=== PATIENT | female | born 1980 | race African-American/Black ===

== ENCOUNTER 2019-03-24 23:10 | Emergency (ER) | payer MEDICAID ==
[~2019-03-24] VITALS: Ht 162.6 cm; Wt 122.0 kg
[~2019-03-24 23:10] MED LIST: ALBU18HF2 IH
[2019-03-25 00:08] VITALS: BP 134/93
[2019-03-25] MEDS ORDERED: ACETAMINOPHEN WITH CODEINE 300/30MG TABLET PO ONE (07:00)
== END 2019-03-25 08:59 | disposition home or self-care (01) ==
LOC: ER 23:10
DX: S82.851A Displaced trimalleolar fracture of right lower leg, initial encounter for closed fracture (principal); J45.909 Unspecified asthma, uncomplicated; Z88.6 Allergy status to analgesic agent; Z88.0 Allergy status to penicillin; Z79.899 Other long term (current) drug therapy; X58.XXXA Exposure to other specified factors, initial encounter; Y93.89 Activity, other specified; Y92.89 Other specified places as the place of occurrence of the external cause; Y99.8 Other external cause status
CPT/HCPCS: 29515; 73600; 99283

== ENCOUNTER 2022-01-20 21:02 | Emergency (ER) | payer MEDICAID ==
[~2022-01-20] VITALS: Ht 162.6 cm; Wt 99.9 kg
[2022-01-21] MEDS ORDERED: ACETAMINOPHEN 325MG TABLET PO STA (02:34)
[2022-01-21] MEDS ORDERED: P20 PO (04:19)
[2022-01-21] MEDS ORDERED: ALBU18HF2 IH (04:19)
[2022-01-21] MEDS ORDERED: ACET-2708 PO (04:19)
[2022-01-21 04:49] VITALS: BP 178/100
== END 2022-01-21 04:50 | disposition home or self-care (01) ==
LOC: ER 21:02
DX: J02.9 Acute pharyngitis, unspecified (principal); J20.9 Acute bronchitis, unspecified; I10 Essential (primary) hypertension; J45.909 Unspecified asthma, uncomplicated; F12.10 Cannabis abuse, uncomplicated; Z20.822 Contact with and (suspected) exposure to COVID-19; Z88.6 Allergy status to analgesic agent; Z88.0 Allergy status to penicillin
CPT/HCPCS: 71045; 81025; 87070; 87426; 87430; 99284; Z7610